=== PATIENT | female | born 1945 | race Caucasian/White ===

== ENCOUNTER → 2017-01-15 | Outpatient (CLI) | payer BC ==
[~2017-01-15] MED LIST: ASPI81TA28 PO; CHOL100010 PO; CLTP PO; COEN150C PO; LEVO125T7 PO; MOVE FREE PO; OMEG10007 PO
--- NOTE | 2017-01-16 07:55 | MAMMOGRAPHY REPORT ---
BILATERAL DIGITAL SCREENING MAMMOGRAM TOMOSYNTHESIS WITH CAD: 01/15/2017 CLINICAL HISTORY: Asymptomatic. Personal history of breast cancer. TECHNIQUE: Breast tomosynthesis in addition to standard 2D mammography was performed. Current study was also evaluated with a Computer Aided Detection (CAD) system. COMPARISON: Comparison is made to exams dated: 01/15/2016 mammogram, 01/13/2015 mammogram, 01/13/2014 m ammogram, 07/15/2013 mammogram, 07/01/2013 mammogram, and 06/30/2012 mammogram - [facility]. BREAST COMPOSITION: There are scattered areas of fibroglandular density in both breasts. FINDINGS: There are stable post surgical changes in the right breast, with slight asymmetry of the s ize of the breast. A few benign-appearing calcifications bilaterally. No new suspicious mass, ce ectural distortion or cluster of microcalcifications is seen. IMPRESSION: ACR BI-RADS CATEGORY 1: NEGATIVE There is no mammographic evidence of malignancy. A 1 year screening mammogram is recommended. The pa tient will receive written notification of the results. Approximately 10% of breast cancers are not detected with mammography. A negative mammographic report should not delay biopsy if a clinically suggestive mass is present. Lesia Johnson M.D. ay/:01/15/2017 12:57:55 Construction Equipment Mechanic Helper: Cindy CARDONA)(Mason)([place]), [facility] letter sent: Normal 1/2 BI-RADS Code: ACR BI-RADS Category 1: Negative
== END | disposition home or self-care (01) ==
LOC: C.MAMM 09:55
PROVIDERS: ATTEND Family Medicine
DX: Z12.31 Encounter for screening mammogram for malignant neoplasm of breast (principal); Z85.3 Personal history of malignant neoplasm of breast

== ENCOUNTER 2017-10-13 08:44 | Inpatient (IN) | payer BC, OTHER ==
[~2017-10-13] VITALS: Ht 165.1 cm; Wt 68.4 kg
[2017-10-13] VITALS (8 sets, daily range): BP systolic 103–147; BP diastolic 62–76; PULSE 62–70; TEMP 36.7–36.9; O2SAT 91–96; Ht 165.1 cm; Wt 68.4 kg
[2017-10-13] MEDS ORDERED: SODIUM CHLORIDE 0.9% 1000ML 1,000 ML IV SCH (09:20)
[2017-10-13 09:28] LABS: BASO % 0.6 %; BASO ABS # 0.04 K/uL (0-0.2); EOS % 4.6 %; EOS ABS # 0.29 K/uL (0-0.5); HEMATOCRIT 43.8 % (37-47); HEMOGLOBIN 14.5 g/dL (12.0-16.0); IG# 0.01 K/uL (0.00-0.02); MEAN CELL VOLUME 96.3 fL (80-100); MEAN CORPUSCULAR HEMOGLOBIN 31.9 pg (25-34); MEAN CORPUSCULAR HGB CONC 33.1 g/dl (32-36); MONO % 8.9 %; MONO ABS # 0.56 K/uL (0.11-0.59); NEUT % 47.7 %; NEUT ABS # 3.02 K/uL (1.4-6.5); PLATELET COUNT 191 K/uL (130-400); RED CELL DISTRIBUTION WIDTH CV 12.9 % (11.5-14.5); RED CELL DISTRIBUTION WIDTH SD 45.1 fL (36.4-46.3); WHITE BLOOD COUNT 6.32 K/uL (4.8-10.8)
--- NOTE | 2017-10-13 09:32 | EMERGENCY ROOM VISIT NOTE ---
History Report prepared by Mike: Rose Bautista Under the Supervision of: Dr. Anabel Vuong M.D. First contact with patient: 09:01 Chief Complaint: STROKE SYMPTOMS Stated Complaint: RIGHT ARM NOT WORKING RIGHT, HISTORY OF STROKE History of Present Illness The patient is a 72 year old female who presents to the Emergency Room with complaints of constant stroke-like symptoms beginning INSOLE COVERER. The patient woke up this morning at 4:30am (about 4.5 hours INSOLE COVERER) and states that her right arm was "not working right" when she woke up. She sat down and was reading for 30 minutes and when she got up to make her bed she was still experiencing symptoms. The patient states that she is able to use her arm but it feels weaker than usual. She states that it starts to shake when she tries to lift something. She reports, "I just don't feel right. I feel like I am in a haze." The patient reports a right-sided headache in the back of her head. She rates her pain as a 6/10 in severity. She has a history of a prior stroke. Source of History: patient Onset: INSOLE COVERER Position: head Symptom Intensity: 6/10 Quality: other (weakness) Timing: constant Associated Symptoms: + headache, + weakness Review of Systems See HPI for pertinent positives & negatives. A total of 10 systems reviewed and were otherwise negative. Past Medical & Surgical Medical Problems: (1) Bronchitis (2) CVA (cerebral vascular accident) (3) Hx of breast cancer (4) Hypothyroidism Nos Surgical Problems: (1) History of appendectomy (2) History of hysterectomy (3) History of tonsillectomy (4) History of tubal ligation Family History Cancer Diabetes mellitus FH: heart disease FHx: gallbladder disease FHx: lung disease Hypertension Kidney disease Kidney stones Seizures Social History Smoking Status: Former Smoker Alcohol Use: occasionally Marital Status: Housing Status: lives with significant other Occupation Status: retired Current/Historical Medications Scheduled Aspirin (Aspirin Ec), 81 MG PO DAILY Astaxanthin (Astaxanthin), 8 MG PO DAILY Calcium-Magnesium W/ Vitamin D (Citracal Calcium+D Slow R), 1 TAB PO DAILY Coenzyme Q10 (Ubidecarenone) (Co Q-10), 200 MG PO DAILY Fish Oil ([place]-3), 1 CAP PO DAILY Levothyroxine Sodium (Levothyroxine Sodium), 100 MCG PO DAILY Multiple Vitamins W/ Minerals (Multivitamin Gummies Wome), 2 TABS PO DAILY Ocuvite Preservision (Ocuvite Preservision), 1 TAB PO DAILY Allergies Coded Allergies: Erythromycin (Verified Allergy, Unknown, unkn, 10/13/17) Latex (Verified Allergy, Unknown, rash, 10/13/17) Penicillins (Verified Allergy, Unknown, rash, itching, 10/13/17) Physical Exam Vital Signs Date Time Temp Pulse Resp B/P (MAP) Pulse Ox O2 Delivery O2 Flow Rate FiO2 10/13/17 10:49 58 19 96 10/13/17 10:44 69 24 96 10/13/17 10:31 152/83 10/13/17 10:14 58 15 96 10/13/17 10:01 149/90 10/13/17 09:59 143/85 10/13/17 09:59 57 10/13/17 09:15 97 Room Air 10/13/17 08:55 36.4 62 20 147/89 96 Room Air Physical Exam Vital signs reviewed. General: Well-appearing elderly female, in no significant distress. HEENT: No scleral icterus, PERRLA, neck supple. Atraumatic. Cardiovascular: Regular rate and rhythm, no extra sounds. Pulmonary: Clear to auscultation bilaterally, normal work of breathing. Abdomen: Soft, nontender, nondistended, positive bowel sounds. Musculoskeletal: Atraumatic, no peripheral edema. Neurologic: Patient awake alert and oriented x 3, right upper extremity has 4/5 strength. Cranial nerves 2 through 12 grossly intact. Finger to nose intact bilaterally. Speech clear, follows commands. Skin: Warm, dry, no rash Medical Decision & Procedures ER Provider Diagnostic Interpretation: Radiology results as stated below per my review and radiologist interpretation: CT OF THE HEAD WITHOUT CONTRAST CLINICAL HISTORY: Stroke COMPARISON STUDY: MRI of the brain January 31, [address] March 22, 2014. CT DOSE: 690.05 mGycm TECHNIQUE: Helical axial images of the head were obtained without IV contrast. Automated exposure control was utilized for the study. A dose lowering technique was utilized adhering to the principles of ALARA. FINDINGS: No acute intracranial hemorrhage, midline shift or mass effect is present. Brain findings normal. Ventricular system is normal. Basilar cisterns are patent. There are no extra-axial collections. No significant calvarial abnormalities present. Mastoid air cells are clear. There is mild mucosal thickening of the ethmoid sinuses. IMPRESSION: No acute intracranial findings. Electronically signed by: Laci Gandhi M.D. 10/13/2017 9:48 AM Dictated Date/Time: 10/13/2017 9:46 AM SINGLE VIEW CHEST CLINICAL HISTORY: Strokelike symptoms. FINDINGS: An AP, portable, upright chest radiograph is compared to study dated 12/20/2015. The examination is degraded by portable technique and patient rotation. The cardiomediastinal silhouette is unremarkable. Emphysema and chronic interstitial thickening are similar to previous. No airspace consolidation or large pleural effusion is identified. There is left basilar atelectasis. Mild apical scarring is observed. No pneumothorax is seen. The skeletal structures are osteopenic. The bony thorax is grossly intact. Surgical clips are noted in the right axilla. IMPRESSION: No active disease in the chest. Electronically signed by: Darnell Warner M.D. 10/13/2017 9:39 AM Dictated Date/Time: 10/13/2017 9:38 AM Laboratory Results Test 10/13/17 09:15 10/13/17 09:23 10/13/17 09:30 Erythrocyte Sedimentation Rate 14 mm/hr (0-21) Prothrombin Time 10.0 SECONDS (9.0-12.0) Prothromb Time International Ratio 1.0 (0.9-1.1) Activated Partial Thromboplast Time 23.4 SECONDS (21.0-31.0) Partial Thromboplastin Ratio 0.9 Est Creatinine Clear Calc Drug Dose 57.4 ml/min Estimated Average Glucose 123 mg/dl Hemoglobin A1c 5.9 % (4.5-5.6) Magnesium Level 2.2 mg/dl (1.8-2.4) Total Creatine Kinase 121 U/L (26-192) Creatine Kinase MB 0.9 ng/ml (0.5-3.6) Creatine Kinase MB Ratio 0.7 (0-3.0) Troponin I < 0.015 ng/ml (0-0.045) Bedside Prothrombin Time INR 0.9 (0.9-1.1) Bedside Glucose 82 mg/dl (70-90) Urine Color YELLOW Urine Appearance CLEAR (CLEAR) Urine pH 7.5 (4.5-7.5) Urine Specific [place] 1.006 (1.000-1.030) Urine Protein NEG (NEG) Urine Glucose (UA) NEG (NEG) Urine Ketones NEG (NEG) Urine Occult Blood TRACE (NEG) Urine Nitrite NEG (NEG) Urine Bilirubin NEG (NEG) Urine Urobilinogen NEG (NEG) Urine Leukocyte Esterase NEG (NEG) Urine WBC (Auto) 0 /hpf (0-5) Urine RBC (Auto) 0-4 /hpf (0-4) Urine Hyaline Casts (Auto) 0 /lpf (0-5) Urine Epithelial Cells (Auto) 0-5 /lpf (0-5) Urine Bacteria (Auto) NEG (NEG) Laboratory results per my review. Medications Administered Medications (Trade) Dose Ordered Sig/Clifford Route Start Time Stop Time Status Last Admin Dose Admin Sodium Chloride 1,000 ml @ 50 mls/hr Q20H IV 10/13/17 09:20 10/13/17 21:15 DC 10/13/17 09:45 50 MLS/HR Sodium Chloride 1,000 ml @ 125 mls/hr Q8H IV 10/13/17 10:46 11/12/17 10:45 10/14/17 05:34 125 MLS/HR Aspirin (Aspirin Chew) 324 mg NOW STAT PO 10/13/17 10:46 10/13/17 11:12 DC 10/13/17 11:36 324 MG Atorvastatin Calcium (Lipitor Tab) 20 mg TODAY@1046 PO 10/13/17 10:46 10/13/17 18:00 DC 10/13/17 15:09 20 MG ECG Per My Interpretation Indication: weakness Rate (beats per minute): 61 Rhythm: normal sinus Findings: no acute ischemic change, no ectopy ED Course 0901: Past medical records reviewed. The patient was evaluated in room B9. A complete history and physical examination was performed. 0920: NSS 1000 ml @ 50 mls/hr IV 1006: I reassessed the patient at this time. She is resting comfortably. I discussed the results and treatment plan with the patient. I answered all pertaining questions that she had. She expressed understanding and verbalized agreement. 1011: I spoke with Dr. Delong. We discussed the patient's case. The patient will be evaluated by the [facility] for further management. Medical Decision Differential diagnosis: Etiologies such as metabolic, infection, hypo/hyperglycemia, electrolyte abnormalities, cardiac sources, intracerebral event, toxicologic, neurologic, as well as others were entertained. This patient was evaluated and appeared to be in no significant distress. Physical examination reveals some weakness of the right upper extremity however the cerebellar exam is intact. Patient complains of previous stroke and is concerned that this may be a recurrence. She is out of the window for any acute TPA treatment. CT scan of the head is unrevealing. The patient has remained stable in the emergency department. She was hydrated with normal saline solution. Laboratory work is unrevealing. EKG reveals a normal sinus rhythm without ectopy or ischemia. Patient's case was discussed with the hospitalist service will evaluate the patient for further management. Medication Reconcilliation Current Medication List: was personally reviewed by me Blood Pressure Screening Patient's blood pressure: Elevated blood pressure Blood pressure disposition: Elevated BP felt to be situational Consults Time Called: 1008 Consulting Physician: Dr. Delong Returned Call: [address] Delong. We discussed the patient's case. The patient will be evaluated by the [facility] for further management. Impression Primary Impression: Stroke-like symptoms Scribe Attestation The scribe's documentation has been prepared under my direction and personally reviewed by me in its entirety. I confirm that the note above accurately reflects all work, treatment, procedures, and medical decision making performed by me. Departure Information Dispostion Being Evaluated By Hospitalist Referrals Gen Cantu M.D. (PCP) Patient Instructions My [facility] Stroke History Time Last Known Well 0430 Stroke t-PA Criteria Reviewed Does NOT meet criteria for t-PA Reason t-PA Not Given Treatment not indicated
[2017-10-13 09:36] LABS: PTT PATIENT 23.4 SECONDS (21.0-31.0)
--- NOTE | 2017-10-13 09:41 | DIAGNOSTIC IMAGING REPORT ---
SINGLE VIEW CHEST CLINICAL HISTORY: Strokelike symptoms. FINDINGS: An AP, portable, upright chest radiograph is compared to study dated 12/20/2015. The examination is degraded by portable technique and patient rotation. The cardiomediastinal silhouette is unremarkable. Emphysema and chronic interstitial thickening are similar to previous. No airspace consolidation or large pleural effusion is identified. There is left basilar atelectasis. Mild apical scarring is observed. No pneumothorax is seen. The skeletal structures are osteopenic. The bony thorax is grossly intact. Surgical clips are noted in the right axilla. IMPRESSION: No active disease in the chest. Electronically signed by: Darnell Warner M.D. 10/13/2017 9:39 AM Dictated Date/Time: 10/13/2017 9:38 AM
[2017-10-13 09:47] LABS: BLOOD UREA NITROGEN 16 mg/dl (7-18); CARBON DIOXIDE 28 mmol/L (21-32); CREATININE 0.84 mg/dl (0.60-1.20); GLUCOSE 94 mg/dl (70-99); SODIUM 135 mmol/L (136-145)
--- NOTE | 2017-10-13 09:50 | DIAGNOSTIC IMAGING REPORT ---
CT OF THE HEAD WITHOUT CONTRAST CLINICAL HISTORY: Stroke COMPARISON STUDY: MRI of the brain January 31, [address] March 22, 2014. CT DOSE: 690.05 mGycm TECHNIQUE: Helical axial images of the head were obtained without IV contrast. Automated exposure control was utilized for the study. A dose lowering technique was utilized adhering to the principles of ALARA. FINDINGS: No acute intracranial hemorrhage, midline shift or mass effect is present. Brain findings normal. Ventricular system is normal. Basilar cisterns are patent. There are no extra-axial collections. No significant calvarial abnormalities present. Mastoid air cells are clear. There is mild mucosal thickening of the ethmoid sinuses. IMPRESSION: No acute intracranial findings. Electronically signed by: Laci Gandhi M.D. 10/13/2017 9:48 AM Dictated Date/Time: 10/13/2017 9:46 AM
[2017-10-13 09:53] LABS: CKMB 0.9 ng/ml (0.5-3.6)
[2017-10-13] MEDS ORDERED: MULT-190 PO (10:16)
[2017-10-13] MEDS ORDERED: LEVO100T7 PO (10:16)
[2017-10-13] MEDS ORDERED: CALC1TAB56 PO (10:16)
[2017-10-13] MEDS ORDERED: MULT1CHW39 PO (10:16)
[2017-10-13] MEDS ORDERED: COEN1CAP37 PO (10:16)
[2017-10-13] MEDS ORDERED: ASTA1CAP PO (10:16)
[2017-10-13] MEDS ORDERED: ASPIRIN 81 MG CHEW PO STA (10:46)
[2017-10-13] MEDS ORDERED: ATORVASTATIN 40 MG TAB PO SCH (10:46)
[2017-10-13] MEDS ORDERED: ZOLPIDEM TARTRATE 5 MG TAB PO PRN (11:00)
[2017-10-13] MEDS ORDERED: MAGNESIUM HYDROXIDE SUSP 30 ML UDC PO PRN (11:00)
[2017-10-13] MEDS ORDERED: PHARMACIST DISCHARGE MED REC CONSULT PRN (11:00)
[2017-10-13] MEDS ORDERED: ONDANSETRON INJ 2 MG/ML 2 ML VIAL IV PRN (11:00)
[2017-10-13] MEDS ORDERED: ALUMINUM/MAGNESIUM/SIMETH (MAALOX MAX) 30 ML UDC PO PRN (11:00)
[2017-10-13] MEDS ORDERED: ACETAMINOPHEN 325 MG TAB PO PRN (11:00)
[2017-10-13] MEDS ORDERED: POLYETHYLENE (MIRALAX) 17 GM PACK PO PRN (11:00)
--- NOTE | 2017-10-13 11:08 | History and Physical ---
History & Physical Date & Time of Service: Oct 13, 2017 at 10:54 Chief Complaint: Right Arm Not Working Right, History Of Stroke Primary Care Physician: Gen Cantu M.D. History of Present Illness Source: patient, spouse 72-year-old female with past medical history of dyslipidemia, intolerable to statin in the past, hypothyroidism, and strong family history of cerebral strokes. Patient was in her regular state of health until last night. She woke up at 4: 30 AM today and noticed some weakness in her right upper extremity. Patient sat down and read her Bible for about an hour then when she stood up again to make the bed she noticed significant weakness in the right upper extremity and unsteadiness in her gait. Patient also describes some right occipital headache 6 out of 10. No associated other symptoms. No slurred speech. No falls. Patient presented to the emergency room for further evaluation as her younger sister recently had a stroke with right-sided paralysis. Also her mother had multiple strokes in the past. Initial evaluation showed right-sided weakness in upper and lower extremities. Unfortunately patient is out of the window for TPA so it was not considered. Patient will be admitted for further evaluation and management. Denies any sensory changes. She took one baby aspirin this morning. Patient does have past medical history of arthritis status post right hip replacement, also patient has history of breast cancer status post lumpectomy 1990 and radiation therapy, no chemotherapy was giving. Status post hysterectomy for fibroid in the . Patient has [id number] smoking history quit in the . Past Medical/Surgical History Medical Problems: (1) Bronchitis (2) CVA (cerebral vascular accident) (3) Dehydration (4) Hx of breast cancer (5) Hypothyroidism Nos (6) Intermittent left-sided chest pain (7) Syncope (8) Syncope (9) UTI (urinary tract infection) Surgical Problems: (1) History of appendectomy (2) History of hysterectomy (3) History of tonsillectomy (4) History of tubal ligation Family History Cancer Diabetes mellitus FH: heart disease FHx: gallbladder disease FHx: lung disease Hypertension Kidney disease Kidney stones Seizures Social History Smoking Status: Former Smoker Marital Status: Occupational Status: retired Immunizations History of Influenza Vaccine: Yes Influenza Vaccine Date: Apr 02, 2011 History of Tetanus Vaccine?: No History of Pneumococcal: Yes Pneumococcal Date: May 05, 2011 History of Hepatitis B Vaccine: No Allergies Coded Allergies: Erythromycin (Verified Allergy, Unknown, unkn, 10/13/17) Latex (Verified Allergy, Unknown, rash, 10/13/17) Penicillins (Verified Allergy, Unknown, rash, itching, 10/13/17) Home Medications Scheduled Aspirin (Aspirin Ec), 81 MG PO DAILY Astaxanthin (Astaxanthin), 8 MG PO DAILY Calcium-Magnesium W/ Vitamin D (Citracal Calcium+D Slow R), 1 TAB PO DAILY Coenzyme Q10 (Ubidecarenone) (Co Q-10), 200 MG PO DAILY Fish Oil (Alex-3), 1 CAP PO DAILY Levothyroxine Sodium (Levothyroxine Sodium), 100 MCG PO DAILY Multiple Vitamins W/ Minerals (Multivitamin Gummies Wome), 2 TABS PO DAILY Ocuvite Preservision (Ocuvite Preservision), 1 TAB PO DAILY Review of Systems Review of system Constitutional: No fever / no chills / no sweats / no weakness / no fatigue Eyes: no blurring of vision / no eye pain / no discharge / no redness ENT: no hearing loss / no epistaxis /no swallowing problems Respiratory: no cough / no wheezing / no SOB / no hemoptysis Cardiovascular: no Chest pain / no lower extremity edema / no palpitation Abdomen: no pain / no nausea / no vomiting / no constipation Musculoskeletal: no joint pain / no muscle pain / no joint swelling Genitourinary: no dysuria / no incontinence / no urinary retention Neurologic: Right-sided weakness mainly noticeable and right upper extremity and unsteady gait/ no numbness/tingling Psychiatric: no depression symptoms / no anxiety / no insomnia Endocrine: no excessive thirst / no excessive urination Hematologic: no abnormal bleeding / no bruising / no LN swelling Skin: No rash / no pallor Physical Exam Vital Signs Date Time Temp Pulse Resp B/P (MAP) Pulse Ox O2 Delivery O2 Flow Rate FiO2 10/13/17 09:59 57 10/13/17 09:15 97 Room Air 10/13/17 08:55 36.4 62 20 147/89 96 Room Air Physical examination General patient appears to be comfortable, not in acute distress HEENT: Atraumatic , normocephalic /no jaundice /no pallor /anicteric /no dry mucous membrane /normal external ear inspection Neck: Supple /no swelling /central trach Heart: S1/S2 normal/regular rate and rhythm/no gallop /no rub /no murmur Lungs: Clear to auscultation bilaterally/normal chest with expansion/no rhonchi/ no rales/no wheezing/no use of accessory muscles of respiration Abdomen: Soft/nontender/no guarding/no rebound/no organomegaly/no pulsatile mass Musculoskeletal: No swelling/no edema/no tenderness/normal range of motion Neuro exam: Awake alert oriented 3/cranial nerves II through XII appear to be intact/sensation intact/left upper extremity is within normal limits, right upper extremity strength is 3/5, right lower extremity strength is 4/5 right left lower extremity is within normal limits. Patient stated that maybe her right lower extremity is weak secondary to her hip replacement on the right she thinks it is not a new complaint Psychiatric evaluation: No depressed mood/normal affect Skin: No rash on exposed skin area/no erythema Extremity: Normal pulse/no pitting edema/no clubbing or cyanosis Endocrine/lymphatic: No obvious lymphadenopathy /no lymphedema Diagnostics Laboratory Results Results Past 24 Hours Test 10/13/17 09:15 10/13/17 09:23 10/13/17 09:30 Range/Units White Blood Count 6.32 4.8-10.8 K/uL Red Blood Count 4.55 4.2-5.4 M/uL Hemoglobin 14.5 12.0-16.0 g/dL Hematocrit 43.8 37-47 % Mean Corpuscular Volume 96.3 80-100 fL Mean Corpuscular Hemoglobin 31.9 25-34 pg Mean Corpuscular Hemoglobin Concent 33.1 32-36 g/dl Platelet Count 191 130-400 K/uL Mean Platelet Volume 10.0 7.4-10.4 fL Neutrophils (%) (Auto) 47.7 % Lymphocytes (%) (Auto) 38.0 % Monocytes (%) (Auto) 8.9 % Eosinophils (%) (Auto) 4.6 % Basophils (%) (Auto) 0.6 % Neutrophils # (Auto) 3.02 1.4-6.5 K/uL Lymphocytes # (Auto) 2.40 1.2-3.4 K/uL Monocytes # (Auto) 0.56 0.11-0.59 K/uL Eosinophils # (Auto) 0.29 0-0.5 K/uL Basophils # (Auto) 0.04 0-0.2 K/uL RDW Standard Deviation 45.1 36.4-46.3 fL RDW Coefficient of Variation 12.9 11.5-14.5 % Immature Granulocyte % (Auto) 0.2 % Immature Granulocyte # (Auto) 0.01 0.00-0.02 K/uL Prothrombin Time 10.0 9.0-12.0 SECONDS Prothromb Time International Ratio 1.0 0.9-1.1 Activated Partial Thromboplast Time 23.4 21.0-31.0 SECONDS Partial Thromboplastin Ratio 0.9 Sodium Level 135 136-145 mmol/L Potassium Level 4.0 3.5-5.1 mmol/L Chloride Level 103 98-107 mmol/L Carbon Dioxide Level 28 21-32 mmol/L Anion Gap 4.0 3-11 mmol/L Blood Urea Nitrogen 16 7-18 mg/dl Creatinine 0.84 0.60-1.20 mg/dl Est Creatinine Clear Calc Drug Dose 57.4 ml/min Estimated GFR () 79.4 Estimated GFR (Non- 68.5 BUN/Creatinine Ratio 19.2 10-20 Random Glucose 94 70-99 mg/dl Calcium Level 9.0 8.5-10.1 mg/dl Magnesium Level 2.2 1.8-2.4 mg/dl Total Creatine Kinase 121 26-192 U/L Creatine Kinase MB 0.9 0.5-3.6 ng/ml Creatine Kinase MB Ratio 0.7 0-3.0 Troponin I < 0.015 0-0.045 ng/ml Bedside Prothrombin Time INR 0.9 0.9-1.1 Bedside Glucose 82 70-90 mg/dl Urine Color YELLOW Urine Appearance CLEAR CLEAR Urine pH 7.5 4.5-7.5 Urine Specific [place] 1.006 1.000-1.030 Urine Protein NEG NEG Urine Glucose (UA) NEG NEG Urine Ketones NEG NEG Urine Occult Blood TRACE NEG Urine Nitrite NEG NEG Urine Bilirubin NEG NEG Urine Urobilinogen NEG NEG Urine Leukocyte Esterase NEG NEG Urine WBC (Auto) 0 0-5 /hpf Urine RBC (Auto) 0-4 0-4 /hpf Urine Hyaline Casts (Auto) 0 0-5 /lpf Urine Epithelial Cells (Auto) 0-5 0-5 /lpf Urine Bacteria (Auto) NEG NEG Diagnostic Radiology CT OF THE HEAD WITHOUT CONTRAST CLINICAL HISTORY: Stroke COMPARISON STUDY: MRI of the brain January 31, [address] March 22, 2014. CT DOSE: 690.05 mGycm TECHNIQUE: Helical axial images of the head were obtained without IV contrast. Automated exposure control was utilized for the study. A dose lowering technique was utilized adhering to the principles of ALARA. FINDINGS: No acute intracranial hemorrhage, midline shift or mass effect is present. Brain findings normal. Ventricular system is normal. Basilar cisterns are patent. There are no extra-axial collections. No significant calvarial abnormalities present. Mastoid air cells are clear. There is mild mucosal thickening of the ethmoid sinuses. IMPRESSION: No acute intracranial findings. Chest x-ray was within normal limits EKG showed no significant ST-T wave changes Impression Assessment and Plan 72-year-old female with past medical history of dyslipidemia intolerable to statin and strong family history for cerebral strokes presented with right- sided weakness. Assessment Right-sided weakness upper more than lower extremities with right-sided headache , likely CVA/TIA Dyslipidemia with intolerable to statin (patient tolerated 20 mg of Ceclor but when the dose was increased to 40 mg and give her muscle cramps) Hypothyroidism Remote history of smoking Arthritis status post right total hip replacement Right breast cancer status post lumpectomy and radiation therapy in 1990 Uterine fibroids status post hysterectomy in Strong family history of cerebral strokes in mother and sister. Plan Admit patient to telemetry Allow permissive hypertension to improve brain perfusion IV fluid hydration and to support blood pressure Empiric aspirin/statin now MRI/MRA of the head MRA neck Complete 2D echo with bubble study Neuro check every 4 hours Fall precautions Neurology consultation Physical therapy/Occupational Therapy consultation Heparin for DVT prophylaxis Resuscitation Status VTE Prophylaxis Will order VTE Prophylaxis: Yes
[2017-10-13 13:37] LABS: HEMOGLOBIN A1C 5.9 % (4.5-5.6)
[2017-10-13] MEDS: ENOXAPARIN 40 MG/0.4 ML SYR SC SCH (15:09)
[2017-10-13] MEDS: SODIUM CHLORIDE 0.9% 1000ML 1,000 ML IV SCH ×2 (15:09→21:25)
--- NOTE | 2017-10-13 15:31 | ECHOCARDIOGRAM REPORT ---
*NOTICE TO RECEIVING CONSTITUTION PARTY AGENCY This information is strictly Confidential and protected under [place] law. [place] law prohibits you from making any further disclosure of this information unless further disclosure is expressly permitted by the written consent of the person to whom it pertains or is authorized by law. A general authorization for the release of medical or other information is not sufficient for this purpose. Hospital accepts no responsibility if the information is made available to any other person, INCLUDING THE PATIENT. Interpretation Summary * Name: CY ESTES Study Date: 10/13/2017 01:32 PM BP: 147/68 mmHg * Patient Location: C.2T\S\S244\S\1 HR: 70 * : 1945 (M/d/yyyy) Gender: Female Height: 65 in * Age: 72 yrs Ethnicity: [place] Weight: 152 lb * Ordering Physician: Brenda Chavez * Referring Physician: Self, Referred * Performed By: Cindy Godwin [facility] * * Reason For Study: CEREBRAL ISCHEMIA / EMBOLUS * BSA: 1.8 m2 * No cardiac source of emboli noted. * -- Conclusions -- * Left ventricular systolic function is normal. * There is mild mitral regurgitation. Procedure Details * A complete two-dimensional transthoracic echocardiogram was performed (2D, M-mode, Doppler and color flow Doppler). * A saline contrast injection was performed to assess for cardiac shunting. * The injection was performed through an intravenous line in the left arm. * The attending nurse who injected the saline contrast was LEEANNE Michaud RN. * A total of 20 cc of agitated saline was given. Left Ventricle * The left ventricle is normal in size. * There is normal left ventricular wall thickness. * Left ventricular systolic function is normal. * Ejection Fraction = 55-60%. * The left ventricular wall motion is normal. Right Ventricle * The right ventricle is normal in size and function. Atria * The left atrial size is normal. * Right atrial size is normal. Mitral Valve * The mitral valve is grossly normal. * There is no evidence of mitral valve prolapse. * There is no vegetation seen on the mitral valve. * There is mild mitral regurgitation. Tricuspid Valve * The tricuspid valve is not well visualized, but is grossly normal. * There is trace tricuspid regurgitation. Aortic Valve * The aortic valve is normal in structure and function. * The aortic valve is trileaflet. * There is no aortic valvular vegetation. * No hemodynamically significant valvular aortic stenosis. * There is no significant aortic regurgitation. Pulmonic Valve * The pulmonic valve is not well visualized. Great Vessels * The aortic root is normal size. MMode 2D Measurements and Calculations IVSd 1.2 cm IVSs 1.5 cm LVIDd 4.1 cm LVIDs 3.3 cm LVPWd 0.98 cm LVPWs 1.0 cm IVS/LVPW 1.3 FS 19.0 % EDV(Teich) 75.2 ml ESV(Teich) 45.4 ml EF(Teich) 39.6 % EDV(cubed) 70.1 ml ESV(cubed) 37.2 ml EF(cubed) 46.9 % % IVS thick 18.9 % % LVPW thick 4.6 % LV mass(C)d 155.4 grams LV mass(C)dI 88.3 grams/m\S\2 LV mass(C)s 136.0 grams LV mass(C)sI 77.2 grams/m\S\2 SV(Teich) 29.8 ml SI(Teich) 16.9 ml/m\S\2 SV(cubed) 32.9 ml SI(cubed) 18.7 ml/m\S\2 Ao root diam 2.7 cm Ao root area 5.6 cm\S\2 LA dimension 2.9 cm LA/Ao 1.1 LVOT diam 2.0 cm LVOT area 3.1 cm\S\2 LVAd ap4 28.3 cm\S\2 LVLd ap4 7.6 cm EDV(MOD-sp4) 85.8 ml EDV(sp4-el) 89.1 ml LVAs ap4 19.8 cm\S\2 LVLs ap4 6.9 cm ESV(MOD-sp4) 47.1 ml ESV(sp4-el) 48.1 ml EF(MOD-sp4) 45.1 % EF(sp4-el) 46.0 % LVAd ap2 27.7 cm\S\2 LVLd ap2 7.4 cm EDV(MOD-sp2) 84.1 ml EDV(sp2-el) 88.3 ml LVAs ap2 18.6 cm\S\2 LVLs ap2 6.1 cm ESV(MOD-sp2) 46.7 ml ESV(sp2-el) 48.1 ml EF(MOD-sp2) 44.4 % EF(sp2-el) 45.5 % LVLd %diff -3.39 % EDV(MOD-bp) 84.4 ml LVLs %diff -12.89 % ESV(MOD-bp) 49.5 ml EF(MOD-bp) 41.4 % SV(MOD-sp4) 38.6 ml SI(MOD-sp4) 22.0 ml/m\S\2 SV(MOD-sp2) 37.3 ml SI(MOD-sp2) 21.2 ml/m\S\2 SV(MOD-bp) 34.9 ml SI(MOD-bp) 19.8 ml/m\S\2 SV(sp4-el) 41.0 ml SI(sp4-el) 23.3 ml/m\S\2 SV(sp2-el) 40.2 ml SI(sp2-el) 22.8 ml/m\S\2 Doppler Measurements and Calculations MV E max lorna 77.6 cm/sec MV A max lorna 65.2 cm/sec MV E/A 1.2 MV P1/2t max lorna 88.9 cm/sec MV P1/2t 53.4 msec MVA(P1/2t) 4.1 cm\S\2 MV dec slope 487.4 cm/sec\S\2 MV dec time 0.23 sec Ao V2 max 106.8 cm/sec Ao max PG 4.6 mmHg Ao max PG (full) 0.87 mmHg PABLO(V,A) 2.8 cm\S\2 PABLO(V,D) 2.8 cm\S\2 LV V1 max PG 3.7 mmHg LV V1 max 96.0 cm/sec MR max lorna 471.2 cm/sec MR max PG 88.8 mmHg PA V2 max 71.6 cm/sec PA max PG 2.1 mmHg PI max lorna 150.1 cm/sec PI max PG 9.0 mmHg PI dec slope 209.7 cm/sec\S\2 PI P1/2t 209.7 msec
[2017-10-13] MEDS ORDERED: GADAVIST IV PRN (21:15)
--- NOTE | 2017-10-13 21:40 | DIAGNOSTIC IMAGING REPORT ---
Brain MRI WITHOUT CONTRAST HISTORY: Right arm dysfunction. Right sided headache. Stroke TECHNIQUE: Multiplanar multisequence MRI of the brain was performed without the use of contrast. COMPARISON STUDY: Head CT 10/13/2017. Brain MRI 01/31/2009. FINDINGS: There are no areas of restricted diffusion to suggest acute infarction. The midline structures are intact. Small retention cysts within the maxillary sinuses. No fluid levels within the paranasal sinuses. Mild atrophy is again noted. There are few scattered punctate foci of T2 hyperintensity suggestive of minimal microvascular ischemic change. This is likely within the range of normal limits given the patient's age. The mastoid air cells are clear. The ventricles and sulci are within normal limits for age. There is no mass, hematoma, midline shift. The major vascular flow-voids at the skull base are well maintained. IMPRESSION: No acute intracranial abnormality. Mild age-related changes as described above. Electronically signed by: Ted Matute M.D. 10/13/2017 9:39 PM Dictated Date/Time: 10/13/2017 9:31 PM
--- NOTE | 2017-10-13 22:51 | DIAGNOSTIC IMAGING REPORT ---
Brain MRA HISTORY: Right arm dysfunction. Headache. Stroke - Attention to [place] TECHNIQUE: 3-D [id number] MRA of the brain was performed without contrast. COMPARISON STUDY: None. FINDINGS: Visualized intracranial internal carotid arteries, distal vertebral arteries, and basilar artery are widely patent. There is no significant stenosis, occlusion, or aneurysm seen within the bilateral ACAs, MCAs, or home health cna. Hypoplastic distal left vertebral artery. IMPRESSION: No significant stenosis, occlusion, or aneurysm within the [place]. Electronically signed by: Ted Matute M.D. 10/13/2017 10:50 PM Dictated Date/Time: 10/13/2017 10:43 PM
--- NOTE | 2017-10-13 23:28 | DIAGNOSTIC IMAGING REPORT ---
NECK MRA HISTORY: Right arm dysfunction. Right-sided headache. Stroke TECHNIQUE: [id number] and gadolinium-enhanced MRA of the neck was performed both before and after the intravenous administration of contrast. All measurements were calculated based on NASCET criteria. COMPARISON STUDY: None. FINDINGS: The aortic arch and proximal great vessels are widely patent. There is no significant stenosis, occlusion, or dissection identified within the bilateral common carotid, internal carotid, or vertebral arteries. The left vertebral artery is hypoplastic. IMPRESSION: No significant stenosis, occlusion, or dissection identified within the carotid or vertebral arteries. Electronically signed by: Ted Matute M.D. 10/13/2017 11:26 PM Dictated Date/Time: 10/13/2017 11:23 PM
[2017-10-14 04:00] VITALS: BP 126/77; PULSE 58; TEMP 36.6; O2SAT 93
[2017-10-14] MEDS: SODIUM CHLORIDE 0.9% 1000ML 1,000 ML IV SCH ×2 (05:34→12:31)
[2017-10-14] MEDS ORDERED: LEVOTHYROXINE 100 MCG TAB PO SCH (06:00)
--- NOTE | 2017-10-14 06:57 | Family Medicine Progress Note ---
Progress Note Date of Service Oct 14, 2017. Objective Vital Signs Date Time Temp Pulse Resp B/P (MAP) Pulse Ox O2 Delivery O2 Flow Rate FiO2 10/14/17 04:00 Room Air 10/14/17 04:00 36.6 58 18 126/77 (93) 93 Room Air 10/13/17 23:59 Room Air 10/13/17 23:59 36.7 62 18 127/73 (91) 93 Room Air 10/13/17 20:09 96 Room Air 10/13/17 20:08 36.8 70 18 125/76 (92) 92 Room Air 10/13/17 18:10 36.9 66 16 147/68 (94) 96 Room Air 10/13/17 16:30 36.9 66 16 147/68 (94) 96 Room Air 10/13/17 16:30 96 Room Air 10/13/17 16:06 36.7 67 20 103/62 (76) 91 Room Air 10/13/17 13:30 36.9 66 16 147/68 (94) 96 Room Air 10/13/17 12:53 62 20 120/68 98 10/13/17 12:24 62 28 91 10/13/17 12:01 125/71 10/13/17 11:54 67 20 94 10/13/17 11:31 139/74 10/13/17 11:24 59 21 97 10/13/17 11:20 96 Room Air 10/13/17 11:19 65 21 96 10/13/17 11:01 160/84 10/13/17 10:49 58 19 96 10/13/17 10:44 69 24 96 10/13/17 10:31 152/83 10/13/17 10:14 58 15 96 10/13/17 10:01 149/90 10/13/17 09:59 143/85 10/13/17 09:59 57 10/13/17 09:15 97 Room Air 10/13/17 08:55 36.4 62 20 147/89 96 Room Air Resident Tracking Resident Involvement: Resident Care Provided Care Provided: Adult Hospital Medicine
[2017-10-14 07:38] LABS: BASO % 0.7 %; BASO ABS # 0.03 K/uL (0-0.2); EOS % 5.9 %; EOS ABS # 0.25 K/uL (0-0.5); HEMOGLOBIN 13.7 g/dL (12.0-16.0); IG# 0.01 K/uL (0.00-0.02); LYMPH % 38.5 %; LYMPH ABS # 1.62 K/uL (1.2-3.4); MEAN CELL VOLUME 96.1 fL (80-100); MEAN CORPUSCULAR HEMOGLOBIN 31.4 pg (25-34); MEAN CORPUSCULAR HGB CONC 32.6 g/dl (32-36); MEAN PLATELET VOLUME 9.9 fL (7.4-10.4); MONO % 7.6 %; MONO ABS # 0.32 K/uL (0.11-0.59); NEUT % 47.1 %; NEUT ABS # 1.98 K/uL (1.4-6.5); PLATELET COUNT 165 K/uL (130-400); RED CELL DISTRIBUTION WIDTH CV 12.8 % (11.5-14.5); RED CELL DISTRIBUTION WIDTH SD 44.7 fL (36.4-46.3); WHITE BLOOD COUNT 4.21 K/uL (4.8-10.8)
[2017-10-14] MEDS: ENOXAPARIN 40 MG/0.4 ML SYR SC SCH (07:49)
[2017-10-14 08:06] VITALS: BP 125/74; PULSE 59; TEMP 36.7; O2SAT 91
[2017-10-14 08:09] LABS: CALCIUM 8.5 mg/dl (8.5-10.1); CREATININE 0.77 mg/dl (0.60-1.20)
[2017-10-14 08:53] VITALS: O2SAT 96
[2017-10-14] MEDS ORDERED: ASPIRIN 325 MG ECTAB PO SCH (09:00)
[2017-10-14] MEDS ORDERED: ATORVASTATIN 20 MG TAB PO SCH (09:00)
[2017-10-14] MEDS ORDERED: OMEGA-3 (PURIFIED FISH OIL) 1 GM CAP PO SCH (09:00)
[2017-10-14] MEDS ORDERED: CEROVITE ADV FORMULA TAB PO SCH (09:00)
--- NOTE | 2017-10-14 09:03 | Neurology Consultation ---
Neurology Consultation Date of Consultation: Oct 14, 2017. Attending Physician: Brenda Chavez MD Primary Care Physician: Gen Cantu M.D. Reason for Consultation: Consultation for stroke and right arm weakness History of Present Illness Source: patient, hospital records This is a 72-year-old right-handed female who presents with acute right arm weakness. She reports that she woke up and felt that she could not use her right arm correctly. Reports that it was mostly with shoulder abduction and elbow flexion. Denies any specific pain. Denied any numbness. Had trouble lifting her coffee cup up to her mouth to drink. She was able to hold the cup. Denies any injuries to the arm, shoulder, or neck. Denies any head injuries. Reports that she also had new intermittent sharp pain in the right cervical/ occipital area. Reports that it was mild to moderate. Occasionally would go into the left temporal area. Patient presented because she does have a family history of stroke and was concerned. Denied any facial droop. Denied any visual changes or vision loss. Denied any trouble with speech or swallowing. No chest pain or shortness of breath. No numbness or weakness in the legs or left arm. [place] that her balance was a little off compared to normal. Also has noted in the recent past that her short-term memory does not seem to be as good as it used to be. Patient reports that her right arm still remains weak this morning. Patient reports intolerance with muscle pain to statin medication in the past. She reports that she did okay with Zocor 10 mg but when it was increased to 40 mg she had muscle pain. She reports that she was tried on a couple of other statin medications but at higher doses again had muscle pains. She is currently not on any statin medication. She does take co-Q10. Remote history of tobacco use. Patient denies ever having a stroke or strokelike symptoms in the past. MRI of the brain report and images reviewed by myself. No acute or chronic strokes. Minimal T2 hyperintensities consistent with age-related changes. MRA of head and neck was also unremarkable. Echocardiogram did not show any source for cardio emboli Total cholesterol 259, LDL 169, HDL 48, triglycerides 208. Hemoglobin A1c 5.9 Past Medical/Surgical History Medical Problems: (1) Intermittent left-sided chest pain Status: Acute (2) Stroke-like symptoms Status: Acute Past medical history significant for dyslipidemia, hypothyroid, hysterectomy, right hip surgery, breast cancer status post lumpectomy Family History Family history significant for stroke, CAD/HI, hypertension, dyslipidemia, diabetes Social History Patient is normally independent her activities of daily living. Remote tobacco use. Smoking Status: Former smoker Marital Status: Housing Status: lives with significant other Occupation Status: retired Allergies Coded Allergies: Erythromycin (Verified Allergy, Unknown, unkn, 10/13/17) Latex (Verified Allergy, Unknown, rash, 10/13/17) Penicillins (Verified Allergy, Unknown, rash, itching, 10/13/17) Current Inpatient Medications Current Inpatient Medications Medications (Trade) Dose Ordered Sig/[place] Route Start Time Stop Time Status Last Admin Dose Admin Fish Oil ([place]-3 (Purified Fish Oil) Cap) 1 gm DAILY PO 10/14/17 09:00 11/13/17 08:59 10/14/17 07:49 1 GM Levothyroxine Sodium (Synthroid Tab) 100 mcg DAILYBB PO 10/14/17 06:00 11/13/17 05:59 10/14/17 05:33 100 MCG Multivitamins/ Minerals (Multivitamin W/ Minerals Tab) 1 tab DAILY PO 10/14/17 09:00 11/13/17 08:59 10/14/17 07:49 1 TAB Enoxaparin Sodium (Lovenox Inj) 40 mg QAM SC 10/13/17 14:00 11/12/17 13:59 10/14/17 07:49 40 MG Sodium Chloride 1,000 ml @ 125 mls/hr Q8H IV 10/13/17 10:46 11/12/17 10:45 10/14/17 05:34 125 MLS/HR Acetaminophen (Tylenol Tab) 650 mg Q4H PRN PO 10/13/17 11:00 11/12/17 10:59 Al Hydrox/Mg Hydrox/Simethicone (Maalox Max Susp) 15 ml Q4H PRN PO 10/13/17 11:00 11/12/17 10:59 Magnesium Hydroxide (Milk Of Magnesia Susp) 30 ml Q12H PRN PO 10/13/17 11:00 11/12/17 10:59 Ondansetron HCl (Zofran Inj) 4 mg Q6H PRN IV 10/13/17 11:00 11/12/17 10:59 Aspirin (Ecotrin Tab) 325 mg QAM PO 10/14/17 09:00 11/13/17 08:59 10/14/17 07:49 325 MG Polyethylene (Miralax Powder Packet) 17 gm DAILY PRN PO 10/13/17 11:00 11/12/17 10:59 Atorvastatin Calcium (Lipitor Tab) 20 mg QAM PO 10/14/17 09:00 11/13/17 08:59 10/14/17 07:49 20 MG Miscellaneous Information (Pharmacist Discharge Med Rec Consult) 1 ea UD PRN N/A 10/13/17 11:00 11/12/17 10:59 Gadobutrol (Gadavist) 7 mmol UD PRN IV 10/13/17 21:15 10/17/17 21:14 Review of Systems Complete review of systems otherwise negative except for the above-noted in HPI Physical Exam Vital Signs (Past 24 Hrs): Date Time Temp Pulse Resp B/P (MAP) Pulse Ox O2 Delivery O2 Flow Rate FiO2 10/14/17 08:06 36.7 59 16 125/74 (91) 91 Room Air 10/14/17 04:00 Room Air 10/14/17 04:00 36.6 58 18 126/77 (93) 93 Room Air 10/13/17 23:59 Room Air 10/13/17 23:59 36.7 62 18 127/73 (91) 93 Room Air 10/13/17 20:09 96 Room Air 10/13/17 20:08 36.8 70 18 125/76 (92) 92 Room Air 10/13/17 18:10 36.9 66 16 147/68 (94) 96 Room Air 10/13/17 16:30 36.9 66 16 147/68 (94) 96 Room Air 10/13/17 16:30 96 Room Air 10/13/17 16:06 36.7 67 20 103/62 (76) 91 Room Air 10/13/17 13:30 36.9 66 16 147/68 (94) 96 Room Air 10/13/17 12:53 62 20 120/68 98 10/13/17 12:24 62 28 91 10/13/17 12:01 125/71 10/13/17 11:54 67 20 94 10/13/17 11:31 139/74 4/23/18 11:24 59 21 97 10/13/17 11:20 96 Room Air 10/13/17 11:19 65 21 96 10/13/17 11:01 160/84 10/13/17 10:49 58 19 96 10/13/17 10:44 69 24 96 10/13/17 10:31 152/83 10/13/17 10:14 58 15 96 10/13/17 10:01 149/90 10/13/17 09:59 143/85 10/13/17 09:59 57 10/13/17 09:15 97 Room Air 10/13/17 08:55 36.4 62 20 147/89 96 Room Air Gen.: Patient is alert and oriented in no acute distress lying in bed Heart: Regular rate and rhythm Extremities: No gross deformities or rashes noted Neurological examination: Mental status: Patient is alert and oriented to person place and time. Able to give his own history. Attention concentration normal for the situation. Remote and recent memory intact Speech is fluent without any dysarthria or aphasia noted Cranial nerves: Funduscopic examination was difficult to visualize, but no papilledema. Pupils equally round and reactive to light. Extraocular muscles intact without nystagmus. No facial asymmetry noted. Facial sensation intact. Tongue midline. Good palatal elevation. Good shoulder shrug bilaterally. Hearing grossly intact voice. Strength: 5/5 both proximal and distal in all extremities with the exception of 4/5 right deltoid, 4/5 right tricep, and 4+/5 right finger extension. Otherwise all other muscle groups in the right arm was 5/5. Patient at time had some give way weakness but denied any specific pain.Tone is normal. Sensation: Grossly intact to light touch in all extremities Deep tendon reflexes: +2 in bilateral biceps, brachioradialis and patellar. Toes are downgoing to plantar stimulation bilaterally Coordination: Patient has good finger to nose without dysmetria. Station within the bed is normal. Laboratory Results Past 24 Hours: 10/14/17 07:26 Red Blood Count 4.37, Mean Corpuscular Volume 96.1, Mean Corpuscular Hemoglobin 31.4, Mean Corpuscular Hemoglobin Concent 32.6, Mean Platelet Volume 9.9, Neutrophils (%) (Auto) 47.1, Lymphocytes (%) (Auto) 38.5, Monocytes (%) (Auto) 7.6, Eosinophils (%) (Auto) 5.9, Basophils (%) (Auto) 0.7, Neutrophils # (Auto) 1.98, Lymphocytes # (Auto) 1.62, Monocytes # (Auto) 0.32, Eosinophils # (Auto) 0.25, Basophils # (Auto) 0.03 10/14/17 07:26 Test 10/13/17 09:15 10/13/17 09:23 10/13/17 09:30 10/14/17 07:26 Erythrocyte Sedimentation Rate 14 mm/hr (0-21) Prothrombin Time 10.0 SECONDS (9.0-12.0) Prothromb Time International Ratio 1.0 (0.9-1.1) Activated Partial Thromboplast Time 23.4 SECONDS (21.0-31.0) Partial Thromboplastin Ratio 0.9 Estimated Average Glucose 123 mg/dl Hemoglobin A1c 5.9 % (4.5-5.6) Magnesium Level 2.2 mg/dl (1.8-2.4) Total Creatine Kinase 121 U/L (26-192) Creatine Kinase MB 0.9 ng/ml (0.5-3.6) Creatine Kinase MB Ratio 0.7 (0-3.0) Troponin I < 0.015 ng/ml (0-0.045) Bedside Prothrombin Time INR 0.9 (0.9-1.1) Bedside Glucose 82 mg/dl (70-90) Urine Color YELLOW Urine Appearance CLEAR (CLEAR) Urine pH 7.5 (4.5-7.5) Urine Specific [place] 1.006 (1.000-1.030) Urine Protein NEG (NEG) Urine Glucose (UA) NEG (NEG) Urine Ketones NEG (NEG) Urine Occult Blood TRACE (NEG) Urine Nitrite NEG (NEG) Urine Bilirubin NEG (NEG) Urine Urobilinogen NEG (NEG) Urine Leukocyte Esterase NEG (NEG) Urine WBC (Auto) 0 /hpf (0-5) Urine RBC (Auto) 0-4 /hpf (0-4) Urine Hyaline Casts (Auto) 0 /lpf (0-5) Urine Epithelial Cells (Auto) 0-5 /lpf (0-5) Urine Bacteria (Auto) NEG (NEG) White Blood Count 4.21 K/uL (4.8-10.8) Red Blood Count 4.37 M/uL (4.2-5.4) Hemoglobin 13.7 g/dL (12.0-16.0) Hematocrit 42.0 % (37-47) Mean Corpuscular Volume 96.1 fL (80-100) Mean Corpuscular Hemoglobin 31.4 pg (25-34) Mean Corpuscular Hemoglobin Concent 32.6 g/dl (32-36) Platelet Count 165 K/uL (130-400) Mean Platelet Volume 9.9 fL (7.4-10.4) Neutrophils (%) (Auto) 47.1 % Lymphocytes (%) (Auto) 38.5 % Monocytes (%) (Auto) 7.6 % Eosinophils (%) (Auto) 5.9 % Basophils (%) (Auto) 0.7 % Neutrophils # (Auto) 1.98 K/uL (1.4-6.5) Lymphocytes # (Auto) 1.62 K/uL (1.2-3.4) Monocytes # (Auto) 0.32 K/uL (0.11-0.59) Eosinophils # (Auto) 0.25 K/uL (0-0.5) Basophils # (Auto) 0.03 K/uL (0-0.2) RDW Standard Deviation 44.7 fL (36.4-46.3) RDW Coefficient of Variation 12.8 % (11.5-14.5) Immature Granulocyte % (Auto) 0.2 % Immature Granulocyte # (Auto) 0.01 K/uL (0.00-0.02) Anion Gap 5.0 mmol/L (3-11) Est Creatinine Clear Calc Drug Dose 57.7 ml/min Estimated GFR () 88.2 Estimated GFR (Non- 76.1 BUN/Creatinine Ratio 19.8 (10-20) Calcium Level 8.5 mg/dl (8.5-10.1) Triglycerides Level 208 mg/dl (0-150) Cholesterol Level 259 mg/dl (0-200) HDL Cholesterol 48 mg/dl LDL Cholesterol, Calculated 169 mg/dl VLDL Cholesterol, Calculated 42 mg/dl Cholesterol/HDL Ratio 5.4 Imaging As noted above in HPI Impression This is a 72-year-old female who presents with more proximal compared to distal right upper extremity acute weakness with some associated intermittent cervical/ occipital sharp pain that rarely goes to the right temporal. Overall localization seems most consistent with a cervical lesion. MRI is negative for stroke. Plan Recommend MRI of the cervical spine with and without contrast for further evaluation of right upper extremity weakness with associated upper cervical/ occipital pain. Recommend physical therapy and occupational therapy for the right upper extremity and neck If the patient does not improve with physical therapy, can be seen in neurology clinic for further evaluation and consideration for possible EMG as an outpatient. Vascular risk factor modifications per primary team and primary care physician. Patient appears to have tolerated low-dose statins in the past. Would recommend that being on low-dose pravastatin for vascular risk factor modification would be preferable compared to being on no statin at all. Use of co-Q10 may decrease adverse reaction of muscle pain associated with statins. Total cholesterol goal 100- 200 and LDL goal less than 100 Blood pressure recommendations 130/80-110/70 Hemoglobin A1c goal less than 7(at goal) Encourage cardiovascular exercise at least 3 times a week for 30 minutes. Thank you for allowing me to participate in this patient's care. If there is any questions or concerns, feel free to call/page me.
--- NOTE | 2017-10-14 10:50 | Clinical Documentation Query ---
CLINICAL DOCUMENTATION QUERY Dr. PULIDO, In your clinical opinion is this patient being managed for: ( ) Hemiplegia/hemiparesis R side ( ) Not Agree ( x ) Other explanation of clinical findings (Please Explain) Findings more consistent with MSK pain ( ) Unable to determine (Please Define) ( ) Need to Discuss The medical record reflects the following clinical findings, treatment, and risk factors. Clinical Indicators: 72 yo female presented with CVA. H/P indicates "Initial evaluation showed right-sided weakness in upper and lower extremities." Treatment: neuro checks, neurology consult, OT and PT consults, ASA and statin Risk Factors: age, CVA, with prior noted CVA Please clarify and document your clinical opinion in the progress notes and discharge summary. Terms such as "probable", "suspected", "likely", "questionable", "possible", or "still to be ruled out" are acceptable. IF IN AGREEMENT, YOU MUST DOCUMENT ABOVE DIAGNOSTIC STATEMENT IN DAILY PROGRESS NOTES AND DISCHARGE SUMMARY. This document is not part of the patient's record. Thank You, Taylor Melendrez, RN [phone]
--- NOTE | 2017-10-14 10:52 | Clinical Documentation Query ---
CLINICAL DOCUMENTATION QUERY Dr. WALTER, In your clinical opinion is this patient being managed for: ( ) Hemiplegia/hemiparesis R side ( ) Not Agree ( x ) Other explanation of clinical findings (Please Explain) ( ) Unable to determine (Please Define) ( ) Need to Discuss Right biceps tendonitis The medical record reflects the following clinical findings, treatment, and risk factors. Clinical Indicators: 72 yo female presented with CVA. H/P indicates "Initial evaluation showed right-sided weakness in upper and lower extremities." Treatment: neuro checks, neurology consult, OT and PT consults, ASA and statin Risk Factors: age, CVA, with prior noted CVA Please clarify and document your clinical opinion in the progress notes and discharge summary. Terms such as "probable", "suspected", "likely", "questionable", "possible", or "still to be ruled out" are acceptable. IF IN AGREEMENT, YOU MUST DOCUMENT ABOVE DIAGNOSTIC STATEMENT IN DAILY PROGRESS NOTES AND DISCHARGE SUMMARY. This document is not part of the patient's record. Thank You, Taylor Melendrez, DIONNE [phone]
[2017-10-14 12:05] VITALS: O2SAT 96
[2017-10-14] MEDS ORDERED: LPT20 PO (12:41)
--- NOTE | 2017-10-14 12:47 | Discharge Instructions ---
Discharge Instructions Date of Service Oct 14, 2017. Admission Reason for Admission: stroke rule-out Discharge Discharge Diagnosis / Problem: Right Biceps tendinitis vs Right rotator cuff tendinopathy Discharge Goals Goal(s): Decrease discomfort, Improve function, Diagnostic testing Activity Recommendations Activity Limitations: resume your previous activity Lifting Limitations: none Exercise/Sports Limitations: none Shower/Bathe: no limitations . Instructions / Follow-Up Instructions / Follow-Up You came to the ER for right arm weakness and noted a significant family history for stroke. Give your age and family history we evaluated you for the possibility of stroke. Fortunately, all of the imaging of your head and neck was normal. Abnormal heart rhythms can also lead to stroke but we monitored your heart rhythm during your admission and it was completely normal. Your echocardiogram that we did to look for clots in the heart that can go to the brain and cause stroke was also normal. Finally our neurologist evaluated your and also felt this was not a stroke. This is all very reassuring. When we evaluated you we did noticed some discomfort in your right biceps and shoulder. This seems more consistent with muscle and tendon strain. Fortunately, this is not an emergent issue and can be addressed by your primary care provider. It is possible that in the days leading up to your presentation you may have inadvertently strained your right arm. If this is the case we should expect it to improve over time. If it does not improve, your family doctor can consider referring your for physical therapy. Even though you did not have a stroke, there are ways in which you can prevent a stroke from ever happening: - Continue taking Aspirin daily 81 mg - We have re-started you on a cholesterol tablet (Atorvastatin). We will start you on a low dose because of your previous history of muscle aches on this class of medication. This has been prescribed directly to your pharmacy - You should aim for a blood pressure < 130/80 - Your primary care provider will continue to screen you for diabetes. You hemoglobin at this time is 5.6 which is fortunately not in the diabetic range. After you go home, if your symptoms fail to improve, acutely worsen, please seek medical attention immediately by either calling your primary care provider or going to your nearest emergency department. Otherwise, please see your primary care provider within 1 week to ensure that your symptoms continue to improve. It was a pleasure to be involved in your care and we wish you all the best. Current Hospital Diet Patient's current hospital diet: Regular Diet Discharge Diet Recommended Diet: AHA Diet (Heart Healthy) Pending Studies Studies pending at discharge: no Laboratory Results Hemoglobin A1c Test 10/13/17 09:15 Range/Units Estimated Average Glucose 123 mg/dl Hemoglobin A1c 5.9 H 4.5-5.6 % Lipid Panel Test 10/14/17 07:26 Range/Units Triglycerides Level 208 H 0-150 mg/dl Cholesterol Level 259 H 0-200 mg/dl HDL Cholesterol 48 mg/dl Cholesterol/HDL Ratio 5.4 LDL Cholesterol, Calculated 169 mg/dl Medical Emergencies . Who to Call and When: Medical Emergencies: If at any time you feel your situation is an emergency, please call 911 immediately. . Non-Emergent Contact Non-Emergency issues call your: Primary Care Provider Call Non-Emergent contact if: your pain is concerning you, you have any medication questions . . "Provider Documentation" section prepared by Julio Hagan. .
[2017-10-14 13:04] VITALS: BP 125/74; PULSE 59; TEMP 36.7; O2SAT 96
--- NOTE | 2017-10-14 23:32 | Discharge Summary ---
Discharge Summary Date of Service Oct 14, 2017. Discharge Summary Admission Date: Oct 13, 2017 at 10:54 Discharge Date: Oct 14, 2017 Discharge Disposition: Home Principal Diagnosis: Right biceps tendinitis vs. rotator cuff tendinopathy Immunizations: Have You Had Influenza Vaccine: Yes Influenza Vaccine Date: Apr 02, 2011 History of Tetanus Vaccine?: No History of Pneumococcal: Yes Pneumococcal Date: May 05, 2011 History of Hepatitis B Vaccine: No Consultations: Neurology Medication Reconciliation New Medications: Atorvastatin (Lipitor) 20 Mg Tab 20 MG PO QAM for 30 Days, #30 TAB Continued Medications: Aspirin (Aspirin Ec) 81 Mg Tab 81 MG PO DAILY Astaxanthin (Astaxanthin) 4 Mg Cap 8 MG PO DAILY Calcium-Magnesium W/ Vitamin D (Citracal Calcium+D Slow R) 1 Tab Tab 1 TAB PO DAILY Coenzyme Q10 (Ubidecarenone) (Co Q-10) 200 Mg Cap 200 MG PO DAILY Fish Oil ([place]-3) 1 Ea Cap 1 CAP PO DAILY, 0 Refills Levothyroxine Sodium (Levothyroxine Sodium) 100 Mcg Tab 100 MCG PO DAILY, TAB Multiple Vitamins W/ Minerals (Multivitamin Gummies [place]) 1 Chw Chw 2 TABS PO DAILY Ocuvite Preservision (Ocuvite Preservision) 1 Tab Tab 1 TAB PO DAILY, TAB Discharge Exam Patient feeling well. Previous headache currently resolved. Right arm weakness slightly improved per patient, but ongoing weakness/apprehension with lifting of arm. She otherwise denies fevers/chills, vision changes, trouble speaking, CP , palpitations, dyspnea, abdominal pain, lower extremity swelling or rashes. She is ambulating without difficulty. Denies issues with voiding or stooling. ROS is unremarkable except as noted above. Physical Exam: General Appearance: WD/WN, no apparent distress Eyes: normal inspection ENT: hearing grossly normal Neck: supple Respiratory/Chest: normal breath sounds, no respiratory distress, no accessory muscle use Cardiovascular: regular rate, rhythm, no murmur Abdomen / GI: normal bowel sounds, non tender, soft Extremities: normal inspection, no calf tenderness, no pedal edema, + pertinent finding (Discomfort with palpation at insertion of right bicep tendon. Apprehension with flexion of shoulder. Pain with resisted movement) Neurologic/Psychiatric: warp spinner II-XII nml as tested, no motor/sensory deficits (Sensation in tact, strength 4-5/5 symmetrically), alert, normal mood/affect, normal reflexes, oriented x 3 Skin: normal color, warm/dry, no rash Hospital Course 72-year-old female with pMHx of dyslipidemia intolerable to statin and strong family history for cerebral strokes presented with right-sided weakness. Right sided upper extremity weakness - Stroke protocol initiated - Imaging - CT head: negative, MRI head: showed age-related changes only, MRA head and neck: negative - Echo: Normal systolic function, EF = 55-60%, no wall motion abnormalities - Neurology consulted, did not feel symptoms consistent with stroke/TIA - Symptoms felt to be more MSK-related - possible right biceps tendonitis or right rotator cuff tendonitis - Symptoms may improve with time or patient advised to see PCP for referral to PT +/- further imaging, only if necessary. If no improvement, can consider neurology referral for EMG - Given stroke risk, advise continuing aspirin daily 81mg daily, start atorvastatin 20mg daily, and BP control targeting < 130/80. HbA1c is 5.6, further evaluation and management of prediabetes may be discussed with PCP [facility] - Atorvastatin 20mg started. - If muscles aches, in addition of coenzyme Q10, may consider switching to pravastatin. Hypothyroid - Continue levothyroxine Resident Physician Supervision Note: I was present with Dr. Stephenson during the history and exam. I discussed the case with the resident and agree with the findings and plan as documented in the note. Any exceptions or clarifications are listed here: Upon my exam, the patient has localized tenderness right shoulder, specifically at the insertion of the biceps tendon. She also notes increased pain with right arm abduction and adduction against resistance. Agree with discharge today with follow up with PCP for re-evaluation and consideration for outpatient PT should symptoms persist. Documented By: Alvarado Carson Total Time Spent: Less than 30 minutes This includes examination of the patient, discharge planning, medication reconciliation, and communication with other providers. Discharge Instructions Please refer to the electronic Patient Visit Report (Discharge Instructions) for additional information. Additional Copies To Gen Cantu M.D. Resident Tracking Resident Involvement: Resident Care Provided Care Provided: [facility]
== END 2017-10-14 14:23 | disposition home or self-care (01) | DRG 558 ==
LOC: C.EDB 08:46 → C.2T 10:54 → ENRESERV 12:08
PROVIDERS: ADMIT Internal Medicine; ATTEND Family Medicine
DX: M75.21 Bicipital tendinitis, right shoulder (principal); R51 Headache; R29.701 NIHSS score 1; E03.9 Hypothyroidism, unspecified; E78.5 Hyperlipidemia, unspecified; Z51.81 Encounter for therapeutic drug level monitoring; Z79.899 Other long term (current) drug therapy; Z79.82 Long term (current) use of aspirin; Z86.73 Personal history of transient ischemic attack (TIA), and cerebral infarction without residual deficits; Z85.3 Personal history of malignant neoplasm of breast; Z96.641 Presence of right artificial hip joint; Z87.891 Personal history of nicotine dependence; Z88.1 Allergy status to other antibiotic agents; Z91.040 Latex allergy status; Z88.0 Allergy status to penicillin; Z88.8 Allergy status to other drugs, medicaments and biological substances; Z82.3 Family history of stroke; Z83.3 Family history of diabetes mellitus; Z82.49 Family history of ischemic heart disease and other diseases of the circulatory system; Z84.1 Family history of disorders of kidney and ureter; Z84.89 Family history of other specified conditions